=== PATIENT | male | born 1970 ===

== ENCOUNTER 2020-04-03 23:37 | Emergency (ER) | payer SELFPAY ==
[~2020-04-03] VITALS: Ht 177.8 cm; Wt 58.0 kg
[2020-04-03 23:38] VITALS: BP 118/73
== END 2020-04-03 23:43 ==
LOC: ED 23:38
DX: R44.0 Auditory hallucinations (principal); Z53.21 Procedure and treatment not carried out due to patient leaving prior to being seen by health care provider